=== PATIENT | female | born 1950 | race Hispanic/Latino ===

== ENCOUNTER 2017-07-12 11:45 | Inpatient (IN) | payer OTHER ==
[~2017-07-12] VITALS: Ht 160 cm; Wt 43.4 kg
[2017-07-12] VITALS (16 sets, daily range): BP systolic 105–228; BP diastolic 52–101
[~2017-07-12 11:45] MED LIST: ALPR1TAB7 PO; AMLO10TA2 PO; AZAT50TA PO; FOLI1TAB85 PO; HYDR-4068 PO; PRED2.5T PO; SEVE800T7 PO
[2017-07-12 12:18] LABS: BASOPHILS % (AUTO) 0.2 % (0.0-5.0); EOSINOPHILS % (AUTO) 0.5 % (0.0-8.0); HEMATOCRIT 31.7 % (36-48); LYMPHOCYTES % (AUTO) 1.6 % (21.0-51.0); MEAN CORPUSCULAR HEMOGLOBIN 37.8 pg (27.0-33.0); MEAN CORPUSCULAR VOLUME 111.4 fL (79-99); NEUTROPHILS % (AUTO) 95.7 % (40.0-77.0); NUCLEATED RED BLOOD CELLS 0.1 % (0.0-0.19); PLATELET COUNT (AUTO) 161 K/uL (130-400); RED BLOOD CELL COUNT(AUTO) 2.84 MIL/uL (4.00-5.50); RED CELL DISTRIBUTION WIDTH 16.2 % (11.0-15.5); WHITE BLOOD COUNT (AUTO) 3.4 K/uL (4.8-10.8)
[2017-07-12 12:26] LABS: CREATININE 4.6 mg/dL (0.5-1.5); POTASSIUM 4.6 mmol/L (3.5-5.1)
[2017-07-12] MEDS ORDERED: AZITHROMYCIN 500MG+NS 250ML 250 ML IV ONE (12:33)
[2017-07-12] MEDS ORDERED: LORAZEPAM 2 MG/ML 1 ML VIAL ONE (12:34)
[2017-07-12] MEDS ORDERED: IPRATROPIUM/ALBUTEROL SULFATE 3 ML SOLUTION IH ONE (12:34)
[2017-07-12 12:41] LABS: ALBUMIN 3.2 g/dL (3.5-5.0); BILIRUBIN,TOTAL 0.8 mg/dL (0.2-1.0); CREATINE KINASE MB 1.4 ng/mL (0.5-3.6); TOTAL PROTEIN, SERUM 6.9 g/dL (6.0-8.3); TROPONIN I 0.25 ng/mL (0.00-0.06)
[2017-07-12 13:14] LABS: INR 0.99 (0.85-1.15); PARTIAL THROMBOPLASTIN TIME 22.8 SEC (26.3-35.5); PROTHROMBIN TIME 10.4 SEC (9.6-11.6)
[2017-07-12] MEDS ORDERED: ONDANSETRON HCL MDV 20ML 2 MG/ML VIAL IVP PRN (15:00)
[2017-07-12] MEDS ORDERED: ACETAMINOPHEN 325 MG TAB PO PRN (15:00)
[2017-07-12] MEDS ORDERED: RENAL DOSE IV SCH (15:00)
[2017-07-12] MEDS ORDERED: CYCL25CA7 PO (15:04)
[2017-07-12] MEDS ORDERED: HYDRALAZINE HCL 20 MG/ML VIAL IV STA (15:51)
[2017-07-12] MEDS ORDERED: MORPHINE SULFATE 4 MG/1ML SYG IV ONE (15:52)
[2017-07-12] MEDS ORDERED: PANTOPRAZOLE SODIUM 40 MG TABLET.DR PO ONE (16:00)
[2017-07-12] MEDS ORDERED: ENOXAPARIN SODIUM 30 MG/0.3 ML SQ ONE (16:00)
[2017-07-12] MEDS ORDERED: HYDRALAZINE HCL 20 MG/ML VIAL IV PRN (16:00)
[2017-07-12] MEDS ORDERED: TIOT4MIS3 IH (16:28)
[2017-07-12] MEDS ORDERED: LACT10SO46 PO (16:28)
[2017-07-12] MEDS ORDERED: HYDR-3421 PO (16:28)
[2017-07-12] MEDS ORDERED: FURO40TA5 PO (16:28)
[2017-07-12] MEDS ORDERED: BENZ-51 PO (16:28)
[2017-07-12] MEDS ORDERED: IPRA3AMP24 IH (16:28)
[2017-07-12] MEDS ORDERED: BENZONATATE 100 MG CAPSULE PO PRN (16:30)
[2017-07-12] MEDS: CEFTRIAXONE SODIUM 1 GM IV SCH (16:41)
[2017-07-12] MEDS: ZOSYN 3.375GM+NS 50ML 50 ML IV SCH (16:42)
[2017-07-12] MEDS: AZITHROMYCIN 500MG+NS 250ML 250 ML IV SCH (16:42)
[2017-07-12] MEDS ORDERED: METOCLOPRAMIDE 10 MG/2 ML VIAL ONE (16:45)
[2017-07-12] MEDS: METOCLOPRAMIDE 10 MG/2 ML VIAL IVP SCH (16:46)
[2017-07-12] MEDS: SEVELAMER HCL 800 MG TABLET PO SCH (17:00)
[2017-07-12] MEDS ORDERED: MORPHINE SULFATE 2 MG/ML 1ML SYG ONE (17:35)
[2017-07-12] MEDS ORDERED: LIDO15CR11 TP (18:12)
[2017-07-12] MEDS ORDERED: LIDOCAINE 15 GM TP PRN (18:15)
[2017-07-12] MEDS: IPRATROPIUM/ALBUTEROL SULFATE 3 ML SOLUTION IH PRN (18:51)
[2017-07-12 18:58] LABS: CREATINE KINASE MB 1.1 ng/mL (0.5-3.6); TROPONIN I 0.34 ng/mL (0.00-0.06)
[2017-07-12] MEDS ORDERED: VANCOMYCIN 1GM+NS 250ML 250 ML IV SCH (20:00)
[2017-07-12] MEDS: CYCLOSPORINE, MODIFIED 25 MG CAPSULE PO SCH (20:15)
[2017-07-12] MEDS: METHYLPREDNISOLONE SOD SUCC 125MG/2ML VIAL IVP SCH (20:15)
[2017-07-12] MEDS: LACTULOSE 20 GM/30 ML UDCUP PO SCH (20:16)
[2017-07-12] MEDS: HYDROXYZINE HCL 25 MG TABLET PO SCH (20:16)
[2017-07-12] MEDS: HYDROCODONE/ACETAMINOPHEN 10/325 MG TAB PO PRN (20:44)
[2017-07-12] MEDS: ALPRAZOLAM 1 MG TAB PO PRN (22:12)
[2017-07-13] VITALS (25 sets, daily range): BP systolic 113–159; BP diastolic 43–93
[2017-07-13] MEDS: METOCLOPRAMIDE 10 MG/2 ML VIAL IVP SCH ×4 (00:58→18:00)
[2017-07-13 01:17] LABS: CREATINE KINASE MB 1.4 ng/mL (0.5-3.6); TROPONIN I 0.33 ng/mL (0.00-0.06)
[2017-07-13] MEDS: ZOSYN 3.375GM+NS 50ML 50 ML IV SCH ×2 (03:11→16:35)
[2017-07-13] MEDS: HYDROCODONE/ACETAMINOPHEN 10/325 MG TAB PO PRN ×3 (03:39→18:37)
[2017-07-13 04:19] LABS: HEMATOCRIT 30.1 % (36-48); MEAN CORPUSCULAR HEMOGLOBIN 38.7 pg (27.0-33.0); MEAN CORPUSCULAR HGB CONC 34.2 g/dL (32.0-36.0); MEAN CORPUSCULAR VOLUME 113.1 fL (79-99); PLATELET COUNT (AUTO) 124 K/uL (130-400); RED BLOOD CELL COUNT(AUTO) 2.66 MIL/uL (4.00-5.50); RED CELL DISTRIBUTION WIDTH 16.3 % (11.0-15.5); WHITE BLOOD COUNT (AUTO) 7.9 K/uL (4.8-10.8)
[2017-07-13 04:49] LABS: BAND NEUTROPHILS % (MANUAL) 17 % (0-2); LYMPHOCYTES % (MANUAL) 46 % (22-44); MONOCYTES % (MANUAL) 2 % (2-9); SEGMENTED NEUTROPHILS % 35 % (40-70)
[2017-07-13 04:50] LABS: ALBUMIN 2.9 g/dL (3.5-5.0); BILIRUBIN,DIRECT 0.3 mg/dL (0.0-0.3); BILIRUBIN,TOTAL 0.8 mg/dL (0.2-1.0); CREATININE 3.3 mg/dL (0.5-1.5); MAGNESIUM 2.1 mg/dL (1.80-2.40); MAN.DIFF COMMENT-IMPRESSION MANUAL DIFFERENTIAL; PHOSPHORUS 5.1 mg/dL (2.5-4.9); PLATELET MORPHOLOGY COMMENT SLIGHTLY DECREASED; POTASSIUM 4.6 mmol/L (3.5-5.1); TOTAL PROTEIN, SERUM 6.6 g/dL (6.0-8.3); URIC ACID 2.6 mg/dL (2.6-7.2)
[2017-07-13] MEDS ORDERED: SODIUM CHLORIDE 3% FOR INHALATION 4 ML/AMP VIAL.NEB IH ONE ×2 (06:04→11:02)
[2017-07-13] MEDS: ALPRAZOLAM 1 MG TAB PO PRN ×3 (06:44→22:07)
[2017-07-13] MEDS ORDERED: COMPOUND PO MISCELLANEOUS 1 EACH MISC MISC PRN (07:00)
[2017-07-13] MEDS: IPRATROPIUM/ALBUTEROL SULFATE 3 ML SOLUTION IH PRN ×2 (07:14→20:01)
[2017-07-13] MEDS: SEVELAMER HCL 800 MG TABLET PO SCH ×3 (07:30→16:35)
[2017-07-13] MEDS: METHYLPREDNISOLONE SOD SUCC 125MG/2ML VIAL IVP SCH ×2 (07:31→20:22)
[2017-07-13] MEDS: CEFTRIAXONE SODIUM 1 GM IV SCH (07:31)
[2017-07-13] MEDS: LACTULOSE 20 GM/30 ML UDCUP PO SCH ×2 (08:26→20:22)
[2017-07-13] MEDS: HYDROXYZINE HCL 25 MG TABLET PO SCH ×3 (08:26→20:22)
[2017-07-13] MEDS: OSELTAMIVIR PHOSPHATE 300 MG, COMPOUNDING VEHICLE SF NO.9 50 ML PO SCH ×2 (08:27)
[2017-07-13] MEDS: PREDNISONE 5 MG TABLET PO SCH (08:28)
[2017-07-13] MEDS: AZATHIOPRINE 50 MG TAB PO SCH (08:29)
[2017-07-13] MEDS: FUROSEMIDE 40 MG TABLET PO SCH (08:30)
[2017-07-13] MEDS: PANTOPRAZOLE SODIUM 40 MG TABLET.DR PO SCH (08:30)
[2017-07-13] MEDS: FOLIC ACID/VITAMIN B COMP W-C 1 MG CAPSULE PO SCH (08:30)
[2017-07-13] MEDS: AMLODIPINE BESYLATE 5 MG TAB PO SCH (08:30)
[2017-07-13] MEDS: ENOXAPARIN SODIUM 30 MG/0.3 ML SQ SCH (08:32)
[2017-07-13] MEDS: OLODATEROL HCL IH SCH (08:32)
[2017-07-13] MEDS: TIOTROPIUM BR IH SCH (08:32)
[2017-07-13] MEDS ORDERED: OSELTAMIVIR PHOSPHATE 75 MG CAP PO SCH (09:00)
[2017-07-13] MEDS: CYCLOSPORINE, MODIFIED 25 MG CAPSULE PO SCH ×2 (09:16→20:22)
[2017-07-13] MEDS: AZITHROMYCIN 500MG+NS 250ML 250 ML IV SCH (16:35)
[2017-07-13] MEDS: FLUCONAZOLE 200 MG/NS 100 ML 100 ML IV SCH (20:14)
[2017-07-14] VITALS (12 sets, daily range): BP systolic 109–153; BP diastolic 49–82
[2017-07-14] MEDS: ZOSYN 3.375GM+NS 50ML 50 ML IV SCH ×2 (02:41→15:00)
[2017-07-14] MEDS: HYDROCODONE/ACETAMINOPHEN 10/325 MG TAB PO PRN ×3 (03:07→20:53)
[2017-07-14] MEDS: ALPRAZOLAM 1 MG TAB PO PRN ×3 (05:17→23:08)
[2017-07-14] MEDS: METOCLOPRAMIDE 10 MG/2 ML VIAL IVP SCH ×5 (06:00→23:08)
[2017-07-14 06:14] LABS: HEMATOCRIT 27.2 % (36-48); MEAN CORPUSCULAR HEMOGLOBIN 39.1 pg (27.0-33.0); MEAN CORPUSCULAR HGB CONC 34.1 g/dL (32.0-36.0); MEAN CORPUSCULAR VOLUME 114.5 fL (79-99); NUCLEATED RED BLOOD CELLS 0.2 % (0.0-0.19); PLATELET COUNT (AUTO) 113 K/uL (130-400); RED BLOOD CELL COUNT(AUTO) 2.38 MIL/uL (4.00-5.50); RED CELL DISTRIBUTION WIDTH 16.8 % (11.0-15.5); WHITE BLOOD COUNT (AUTO) 17.3 K/uL (4.8-10.8)
[2017-07-14 06:38] LABS: CREATININE 4.6 mg/dL (0.5-1.5); MAGNESIUM 2.7 mg/dL (1.80-2.40); POTASSIUM 5.5 mmol/L (3.5-5.1)
[2017-07-14] MEDS: SEVELAMER HCL 800 MG TABLET PO SCH ×3 (08:46→17:43)
[2017-07-14] MEDS: METHYLPREDNISOLONE SOD SUCC 125MG/2ML VIAL IVP SCH ×2 (09:00→20:47)
[2017-07-14] MEDS: OLODATEROL HCL IH SCH (09:00)
[2017-07-14] MEDS: TIOTROPIUM BR IH SCH (09:00)
[2017-07-14] MEDS: PREDNISONE 5 MG TABLET PO SCH (10:10)
[2017-07-14] MEDS: FOLIC ACID/VITAMIN B COMP W-C 1 MG CAPSULE PO SCH (10:10)
[2017-07-14] MEDS: PANTOPRAZOLE SODIUM 40 MG TABLET.DR PO SCH (10:10)
[2017-07-14] MEDS: FUROSEMIDE 40 MG TABLET PO SCH (10:11)
[2017-07-14] MEDS: AMLODIPINE BESYLATE 5 MG TAB PO SCH (10:11)
[2017-07-14] MEDS: LACTULOSE 20 GM/30 ML UDCUP PO SCH ×2 (10:11→20:46)
[2017-07-14] MEDS: ENOXAPARIN SODIUM 30 MG/0.3 ML SQ SCH (10:11)
[2017-07-14] MEDS: HYDROXYZINE HCL 25 MG TABLET PO SCH ×3 (10:14→20:47)
[2017-07-14] MEDS: CYCLOSPORINE, MODIFIED 25 MG CAPSULE PO SCH ×2 (10:45→20:47)
[2017-07-14] MEDS: OSELTAMIVIR PHOSPHATE 300 MG, COMPOUNDING VEHICLE SF NO.9 50 ML PO SCH ×2 (10:45)
[2017-07-14] MEDS: AZATHIOPRINE 50 MG TAB PO SCH (10:46)
[2017-07-14] MEDS ORDERED: SODIUM CHLORIDE 0.9% 1000ML 1,000 ML IV ONE (13:11)
[2017-07-14] MEDS: CEFTRIAXONE SODIUM 1 GM IV SCH (18:15)
[2017-07-14] MEDS: AZITHROMYCIN 500MG+NS 250ML 250 ML IV SCH (18:15)
[2017-07-14] MEDS ORDERED: VANCOMYCIN 500MG+NS 100ML 100 ML IV SCH (20:00)
[2017-07-15] VITALS: BP 134/61
[2017-07-15] MEDS: ZOSYN 3.375GM+NS 50ML 50 ML IV SCH ×2 (02:55→14:34)
[2017-07-15 04:00] VITALS: BP 150/73
[2017-07-15] MEDS: HYDROCODONE/ACETAMINOPHEN 10/325 MG TAB PO PRN ×3 (04:30→21:18)
[2017-07-15] MEDS: METOCLOPRAMIDE 10 MG/2 ML VIAL IVP SCH ×4 (06:00→23:11)
[2017-07-15 08:00] VITALS: BP 161/80
[2017-07-15] MEDS: HYDROXYZINE HCL 25 MG TABLET PO SCH ×3 (08:50→21:17)
[2017-07-15] MEDS: SEVELAMER HCL 800 MG TABLET PO SCH ×3 (08:50→17:06)
[2017-07-15] MEDS: FOLIC ACID/VITAMIN B COMP W-C 1 MG CAPSULE PO SCH (08:51)
[2017-07-15] MEDS: FUROSEMIDE 40 MG TABLET PO SCH (08:51)
[2017-07-15] MEDS: AMLODIPINE BESYLATE 5 MG TAB PO SCH (08:51)
[2017-07-15] MEDS: METHYLPREDNISOLONE SOD SUCC 125MG/2ML VIAL IVP SCH ×2 (08:51→21:17)
[2017-07-15] MEDS: PANTOPRAZOLE SODIUM 40 MG TABLET.DR PO SCH (08:51)
[2017-07-15] MEDS: CYCLOSPORINE, MODIFIED 25 MG CAPSULE PO SCH ×2 (08:55→21:17)
[2017-07-15] MEDS: AZATHIOPRINE 50 MG TAB PO SCH (08:55)
[2017-07-15] MEDS: PREDNISONE 5 MG TABLET PO SCH (08:56)
[2017-07-15] MEDS: LACTULOSE 20 GM/30 ML UDCUP PO SCH ×2 (08:56→21:00)
[2017-07-15] MEDS: ALPRAZOLAM 1 MG TAB PO PRN ×2 (08:56→22:54)
[2017-07-15] MEDS: ENOXAPARIN SODIUM 30 MG/0.3 ML SQ SCH (08:57)
[2017-07-15] MEDS: OLODATEROL HCL IH SCH (09:00)
[2017-07-15] MEDS: TIOTROPIUM BR IH SCH (09:00)
[2017-07-15] MEDS: OSELTAMIVIR PHOSPHATE 300 MG, COMPOUNDING VEHICLE SF NO.9 50 ML PO SCH ×2 (09:06)
[2017-07-15] MEDS: CEFTRIAXONE SODIUM 1 GM IV SCH (09:07)
[2017-07-15 11:00] VITALS: BP 134/65
[2017-07-15] MEDS: AZITHROMYCIN 500MG+NS 250ML 250 ML IV SCH (14:34)
[2017-07-15 16:00] VITALS: BP 126/68
[2017-07-15 20:00] VITALS: BP 139/71
[2017-07-15] MEDS: FLUCONAZOLE 200 MG/NS 100 ML 100 ML IV SCH (21:17)
[2017-07-16 00:07] VITALS: BP 138/63
[2017-07-16] MEDS: ZOSYN 3.375GM+NS 50ML 50 ML IV SCH ×2 (02:54→15:00)
[2017-07-16 05:04] LABS: HEMATOCRIT 27.2 % (36-48); MEAN CORPUSCULAR HEMOGLOBIN 37.9 pg (27.0-33.0); MEAN CORPUSCULAR VOLUME 114.9 fL (79-99); NUCLEATED RED BLOOD CELLS 0.2 % (0.0-0.19); PLATELET COUNT (AUTO) 96 K/uL (130-400); RED BLOOD CELL COUNT(AUTO) 2.37 MIL/uL (4.00-5.50); RED CELL DISTRIBUTION WIDTH 17.1 % (11.0-15.5); WHITE BLOOD COUNT (AUTO) 7.5 K/uL (4.8-10.8)
[2017-07-16] MEDS: METOCLOPRAMIDE 10 MG/2 ML VIAL IVP SCH ×3 (05:08→17:31)
[2017-07-16 05:22] LABS: CREATININE 5.2 mg/dL (0.5-1.5); POTASSIUM 5.3 mmol/L (3.5-5.1)
[2017-07-16] MEDS: HYDROCODONE/ACETAMINOPHEN 10/325 MG TAB PO PRN (06:01)
[2017-07-16] MEDS: SEVELAMER HCL 800 MG TABLET PO SCH ×3 (08:00→17:00)
[2017-07-16] MEDS: CEFTRIAXONE SODIUM 1 GM IV SCH (09:00)
[2017-07-16] MEDS: ENOXAPARIN SODIUM 30 MG/0.3 ML SQ SCH (09:00)
[2017-07-16] MEDS: METHYLPREDNISOLONE SOD SUCC 125MG/2ML VIAL IVP SCH (09:00)
[2017-07-16] MEDS: TIOTROPIUM BR IH SCH (09:00)
[2017-07-16] MEDS: FUROSEMIDE 40 MG TABLET PO SCH (09:00)
[2017-07-16] MEDS: HYDROXYZINE HCL 25 MG TABLET PO SCH ×2 (09:00→14:00)
[2017-07-16] MEDS: OLODATEROL HCL IH SCH (09:00)
[2017-07-16] MEDS: AMLODIPINE BESYLATE 5 MG TAB PO SCH (09:00)
[2017-07-16] MEDS: FOLIC ACID/VITAMIN B COMP W-C 1 MG CAPSULE PO SCH (10:48)
[2017-07-16] MEDS: LACTULOSE 20 GM/30 ML UDCUP PO SCH (10:48)
[2017-07-16] MEDS: PANTOPRAZOLE SODIUM 40 MG TABLET.DR PO SCH (10:48)
[2017-07-16] MEDS: ALPRAZOLAM 1 MG TAB PO PRN (10:49)
[2017-07-16] MEDS: AZATHIOPRINE 50 MG TAB PO SCH (10:49)
[2017-07-16] MEDS: PREDNISONE 5 MG TABLET PO SCH (10:49)
[2017-07-16] MEDS: CYCLOSPORINE, MODIFIED 25 MG CAPSULE PO SCH (10:49)
[2017-07-16] MEDS: OSELTAMIVIR PHOSPHATE 300 MG, COMPOUNDING VEHICLE SF NO.9 50 ML PO SCH ×2 (10:58)
[2017-07-16 11:00] VITALS: BP 142/71
[2017-07-16] MEDS ORDERED: SODIUM CHLORIDE 0.9% 1000ML 1,000 ML IV ONE (15:55)
[2017-07-16 16:00] VITALS: BP 109/58
[2017-07-16] MEDS: AZITHROMYCIN 500MG+NS 250ML 250 ML IV SCH (18:50)
== END 2017-07-16 20:08 | disposition home or self-care (01) | DRG 871 ==
LOC: EDH 11:45 → EDHIP 12:34 → 3CH 14:08 → 2BH 14:27 → 2CH 15:33 → 3AH 07-14 08:31
PROVIDERS: ADMIT Internal Medicine; ATTEND Internal Medicine
PROC: 5A1D70Z Performance of Urinary Filtration, Intermittent, Less than 6 Hours Per Day (ICD-10-PCS; 2017-07-12)
PROC: 5A09357 Assistance with Respiratory Ventilation, Less than 24 Consecutive Hours, Continuous Positive Airway Pressure (ICD-10-PCS; 2017-07-12)
PROC: 5A09357 Assistance with Respiratory Ventilation, Less than 24 Consecutive Hours, Continuous Positive Airway Pressure (ICD-10-PCS; 2017-07-13)
PROC: 5A1D70Z Performance of Urinary Filtration, Intermittent, Less than 6 Hours Per Day (ICD-10-PCS; 2017-07-14)
PROC: 02HV33Z Insertion of Infusion Device into Superior Vena Cava, Percutaneous Approach (ICD-10-PCS; principal; 2017-07-15)
PROC: 5A1D70Z Performance of Urinary Filtration, Intermittent, Less than 6 Hours Per Day (ICD-10-PCS; 2017-07-16)
DX: A41.9 Sepsis, unspecified organism (principal); J18.9 Pneumonia, unspecified organism; J96.21 Acute and chronic respiratory failure with hypoxia; I13.2 Hypertensive heart and chronic kidney disease with heart failure and with stage 5 chronic kidney disease, or end stage renal disease; E46 Unspecified protein-calorie malnutrition; N17.9 Acute kidney failure, unspecified; D70.9 Neutropenia, unspecified; Z94.4 Liver transplant status; E11.22 Type 2 diabetes mellitus with diabetic chronic kidney disease; D69.6 Thrombocytopenia, unspecified; N18.6 End stage renal disease; J98.11 Atelectasis; J44.0 Chronic obstructive pulmonary disease with (acute) lower respiratory infection; J44.1 Chronic obstructive pulmonary disease with (acute) exacerbation; Z68.1 Body mass index [BMI] 19.9 or less, adult; E11.51 Type 2 diabetes mellitus with diabetic peripheral angiopathy without gangrene; I50.9 Heart failure, unspecified; F41.9 Anxiety disorder, unspecified; D64.9 Anemia, unspecified; E03.9 Hypothyroidism, unspecified; E78.5 Hyperlipidemia, unspecified; E83.52 Hypercalcemia; I25.10 Atherosclerotic heart disease of native coronary artery without angina pectoris; G89.29 Other chronic pain; G43.909 Migraine, unspecified, not intractable, without status migrainosus; J84.10 Pulmonary fibrosis, unspecified; K74.60 Unspecified cirrhosis of liver; M81.0 Age-related osteoporosis without current pathological fracture; Y95 Nosocomial condition; Z87.01 Personal history of pneumonia (recurrent); Z90.710 Acquired absence of both cervix and uterus; Z99.2 Dependence on renal dialysis; Z99.81 Dependence on supplemental oxygen
CPT/HCPCS: 36415; 71045; 71250; 76700; 80048; 80053; 80076; 82270; 82550; 82553; 82607; 82746; 83605; 83735; 83874; 83880; 84100; 84443; 84484; 84550; 85025; 85027; 85610; 85730; 87040; 87071; 87077; 87106; 87116; 87186; 87205; 87206; 90935; 93005; 94640; 94660; 94664; 99291; A4218; J0360; J0456; J0696; J1450; J1650; J2060; J2543; J2765; J2930; J3370; J7030; J7500; J7512; J7515

== ENCOUNTER 2017-09-30 18:50 | Emergency (ER) | payer OTHER ==
[~2017-09-30 18:50] MED LIST changes: +BENZ-51 PO; +CYCL25CA7 PO; +FURO40TA5 PO; +HYDR-3421 PO; +IPRA3AMP24 IH; +LACT10SO46 PO; +LIDO15CR11 TP; +TIOT4MIS3 IH
[2017-09-30] MEDS ORDERED: TRAMADOL HCL 50 MG TABLET ONE (20:53)
== END 2017-09-30 21:54 | disposition home or self-care (01) ==
LOC: EDH 18:50
DX: M54.5 Low back pain (principal); I12.0 Hypertensive chronic kidney disease with stage 5 chronic kidney disease or end stage renal disease; N18.6 End stage renal disease
CPT/HCPCS: 72100

== ENCOUNTER → 2018-01-28 | Outpatient (CLI) | payer OTHER ==
[~2018-01-28] MED LIST changes: -AMLO10TA2 PO; +AMLO10TA6 PO
== END | disposition home or self-care (01) ==
LOC: OIH 14:16
PROVIDERS: ATTEND Internal Medicine
DX: J90 Pleural effusion, not elsewhere classified (principal); M54.5 Low back pain; M85.88 Other specified disorders of bone density and structure, other site; I70.0 Atherosclerosis of aorta
CPT/HCPCS: 71046; 72100